=== PATIENT | female | born 1960 | race Caucasian/White ===

== ENCOUNTER 2025-01-23 10:35 | Outpatient (CLI) | payer BC, SELFPAY ==
--- NOTE | ~2025-01-23 | US_ITS ---
EXAM: PELVIC ULTRASOUND HISTORY: Pelvic and perineal pain 3, para 3 COMPARISON: None. FINDINGS: UTERUS: 8.1 x 2.8 x 3.4 cm. The uterus is retroverted and retroflexed The endometrial complex measures 2 mm. A striated appearance is identified within the uterus. Within the fundus of the uterus, is a well-circumscribed focus of decreased echogenicity measuring 2. 4 x 2.2 x 2.4 cm consistent with a subserosal fibroid. RIGHT OVARY: Despite prolonged interrogation, the right ovary was not visualized. LEFT OVARY: Despite prolonged interrogation, the left ovary was not visualized. No free fluid is identified within the pelvis. IMPRESSION: A striated appearance within the retroverted uterus suggesting adenomyosis. Single subserosal fibroid within the fundus measuring 2.4 cm in greatest dimension. Reviewed, dictated and finalized at location A. IMPRESSION: A striated appearance within the retroverted uterus suggesting adenomyosis. Single subserosal fibroid within the fundus measuring 2.4 cm in greatest dimens ion.
== END 2025-01-23 10:36 | disposition home or self-care (01) ==
DX: N85.4 Malposition of uterus (principal); D25.2 Subserosal leiomyoma of uterus
CPT/HCPCS: 76830; 76856